=== PATIENT | female | born 1995 | race Caucasian/White ===

== ENCOUNTER 2021-05-31 20:20 | Outpatient (CLI) | payer SELFPAY ==
[2021-05-31 20:33] VITALS: BP 130/81; PULSE 84
[2021-05-31 20:43] VITALS: RESP 15
[2021-05-31 20:47] VITALS: BMI 29.9
[2021-05-31 22:03] VITALS: BP 124/79; PULSE 89
[2021-05-31 22:29] VITALS: BP 122/76; PULSE 85
== END 2021-05-31 23:00 | disposition home or self-care (01) ==
LOC: OPOB 20:27 → OBGYN 20:28
PROVIDERS: Family Provider Family Medicine; Visit Provider Family Medicine
DX: O26.899 Other specified pregnancy related conditions, unspecified trimester (principal); Z3A.00 Weeks of gestation of pregnancy not specified; R10.9 Unspecified abdominal pain
CPT/HCPCS: 59025; 99211

== ENCOUNTER 2021-06-02 02:27 | Inpatient (IN) | payer SELFPAY ==
[2021-06-02] VITALS (63 sets, daily range): BP systolic 100–135; BP diastolic 59–87; PULSE 87–173; RESP 16–18; TEMP 36.4–37.1; O2SAT 98–100; BMI 29.9
[2021-06-02] MEDS: lactated ringers 1,000 ML 999 ML IV (03:00)
[2021-06-02] MEDS: fentaNYL 50 mcg/mL INJ 2mL IVP (03:04)
[2021-06-02 03:06] LABS: Basophils % 0.2 %; Eosinophils # 0.1 10^3/uL (0.0-0.8); Eosinophils % 0.5 %; Hematocrit 28.8 % (37.0-47.0); Hemoglobin 8.8 g/dL (11.5-15.3); Lymphocytes % 10.9 %; Mean Corpuscular HGB Conc 30.6 g/dL (30.0-36.0); Mean Corpuscular Hemoglobin 25.2 pg (28.0-34.0); Mean Corpuscular Volume 82.5 fl (81-99); Mean Platelet Volume 11.9 fL (7.4-10.4); Monocytes # 1.1 10^3/uL (0.2-0.9); Monocytes % 5.8 %; Neutrophils # 15.18 10^3/uL (1.8-7.7); Neutrophils % 81.5 %; Nucleated Red Blood Cells % 0.2 %; Platelet Count 157 10^3/cmm (130-400); Red Blood Count 3.49 10^6/uL (4.1-5.3); Red Cell Distribution Width 16.9 % (12.1-15.1); White Blood Count 18.6 10^3/uL (4.0-10.0)
[2021-06-02] MEDS: ondansetron 2 mg/ML SDV 2 mL 4 MG IVP (03:16)
[2021-06-02 03:49] LABS: Nitrazine Paper, PH Positive
--- NOTE | 2021-06-02 04:07 | P.ANESASSM_ITS ---
Pre-Anesthetic Assessment Pre-Anesthetic Assessment: Height/Weight: Height 1.65 m Weight 81.647 kg Temp Pulse Resp BP 97.9 F 93 18 121/69 06/02/21 02:20 06/02/21 03:50 06/02/21 03:04 06/02/21 03:50 Preop Diagnosis: labor pain Proposed Procedure: epidural Familial anesthetic complications: none Was Beta Calvin taken within 24 hours: N/A Was Clonidine taken within 24 hours: N/A Social: Social History: No alcohol and No tobacco Exam: Pre-Anes Outpt Exam: alert, oriented x 3, clear to auscultation bilaterally and regular rate & rhythm Airway: Submandibular: WNL Cervical ROM: WNL MP: 2 Dentition: Full Pulmonary: Pulmonary: None reported CV/HEM: CV/HEM: None reported : : None reported Hepatic: Hepatic: None reported GI: GI: GERD Metabolic: Metabolic: None reported Musc/skel: Musc/skel: None reported Neuropsych: Neuropsych: GRAYSON Anesthetic Plan: ASA status: 2 Anesthesia: Regional (specify below) Risk of > 500 ml blood loss (7ml/kg in children): No Meds/Allergies Current Medications: Current Medications Generic Name Dose Route Start Last Admin Trade Name Freq PRN Reason Stop Dose Admin Fentanyl 25 - 100 mcg 06/02/21 02:19 06/02/21 03:04 Fentanyl 50 Mcg/ Ml Inj 2ml IVP 25 mcg Q1H PRN Administration SEVERE PAIN Lactated Ringer's 1,000 mls @ 999 m ls/hr 06/02/21 02:19 06/02/21 03:00 Lactated Ringers IV 999 mls/hr .Q1H1M PRN Administration See label comment s Ondansetron HCl 4 mg 06/02/21 02:19 06/02/21 03:16 Ondansetron 2 Mg /Ml Sdv 2 Ml IVP 4 mg Q4H PRN Administration NAUSEA AND VOMITI NG PFSH Anesthesia Female Reproductive History: : 3 Data Anesthesia CBC & Chem 7: 06/02/21 03:00 Other Labs: Laboratory Results - last 48 hr 06/02/21 03:00 WBC 18.6 H RBC 3.49 L Hgb 8.8 L Hct 28.8 L MCV 82.5 MCH 25.2 L MCHC 30.6 RDW 16.9 H Plt Count 157 MPV 11.9 H Neut % (Auto) 81.5 Lymph % (Auto) 10.9 [place] % (Auto) 5.8 Eos % (Auto) 0.5 Baso % (Auto) 0.2 Neut # (Auto) 15.18 H Lymph # (Auto) 2.0 [place] # (Auto) 1.1 H Eos # (Auto) 0.1 Baso # (Auto) 0.0 Nucleated RBC % (auto) 0.2 Nucleated RBCs # 0.0 Cardiac Studies: No Data to Display
[2021-06-02] MEDS: dextrose 5%-lactated ringers 1,000 ML 125 ML IV (04:13)
--- NOTE | 2021-06-02 04:42 | P.ANES_ITS ---
Anesthesia Procedures Procedure/Date: 06/02/21 epidural Procedure Narrative: epidural complete, bolus given, epidural pump initiated with SAP ARCHITECT education given, vitals taken during procedure using OBIX system and satisfactory throughout, patient admits to decrease pain, report of procedure to OB RN Epidural: Time Out Performed: Yes Consents Signed: Procedure Consent Consent: requested by attending/covering physician, from patient, risks and benefits reviewed and patient agrees to proceed Lumbar Level: L3-L4 Epidural position: sitting Epidural procedure: sterile prep of area, 1% lidocaine to numb the area (3 mL), 18 g needle, negative for paresthesia passed, neg for paresthesia, test dose given, 1.5% xylocaine 1:200k epi (5 mL), 0.2% Ropivacaine bolus ml (5 mL), placed PCEA, no systemic response, sterile dressing applied, L.U.D. no apparent complications and 0.2% Ropiavacaine @ mls/hr (13 mL/hr)
[2021-06-02] MEDS: oxytocin 30 UNIT/500 ML BAG 999 UNIT IV (07:25)
[2021-06-02] MEDS: ibuprofen 800 mg tablet PO ×3 (08:31→21:44)
[2021-06-02] MEDS: docusate sodium 100 mg Capsule PO (08:31)
[2021-06-02] MEDS: HYDROcodone-acetaminophen 5-325 mg Tablet PO (08:31)
[2021-06-02] MEDS: prenatal vitamin Capsule 1 CAP PO (08:31)
--- NOTE | 2021-06-02 08:58 | PM.OPHPUD ---
Labor & Delivery H&P Update Date of Procedure: June 02, 2021 Date H&P Performed: 05/28/21 H&P update information: I have reviewed H&P completed within last 30 days, I have examined patient prior to procedure and Changes to prior documentation as noted here Changes to previous documentation: Spontaneous rupture of membranes with meconium. Admission Diagnosis: Preop diagnosis: labor pain Planned procedure: Vaginal delivery Related Problem List Diagnoses (1) 39 weeks gestation of : (2) Spontaneous rupture of membranes: (3) Meconium in amniotic fluid:
--- NOTE | 2021-06-02 09:00 | PM.DELIVERY ---
Delivery Note: Date of delivery: June 02, 2021 Pre-delivery diagnoses: 1. 25-year-old 3 para 2-0-0-2 at 39 weeks estimated stational age Post-delivery diagnoses: Status post vacuum-assisted vaginal delivery Procedure: Vacuum-assisted vaginal delivery Op report anesthesia: Epidural Delivering Physician: Dougie Wooten Estimated blood loss (mL): 100 Pre-Delivery Course: The patient presented to the hospital where she was as well as meconium. She is having consistent contractions. She slowly progressed to complete without difficulty. An epidural was placed. Her was unremarkable. She did switch positions in her third trimester because of moving. Her labs are unremarkable. Her Covid test is negative. Her glucose screen was negative. Her GBS status was negative. Delivery: DELIVERY: The patient progressed to complete without difficulty. She delivered a male with a weight of 11 pounds 1 ounce with Apgars of 8, 9. As the patient began pushing, her baby began having deep decelerations with heart rate sometimes into the 70s and 80s. I elected to use a vacuum to assist with delivery of the baby. The vacuum was carefully placed on the baby in usual fashion. I assisted with the vacuum during 3 contractions. There were no pop offs. The baby was delivered from the MARVIN position and placed on the mother's abdomen. The cord was then clamped and cut. There was no nuchal cord. Thick meconium was noted. The baby's mouth and nose were suctioned with bulb suction. The baby was then handed to the nurses at the infant warmer who then delete suction to the baby as well.. The placenta and 3 vessel cord were delivered intact shortly thereafter. The perineum and vaginal vault were carefully examined. No lacerations were noted. Both the mother and the baby were in stable condition. Post-Delivery Status: Good A&P Assessment and plan (1) 39 weeks gestation of : Status: Acute (2) Spontaneous rupture of membranes: Status: Acute (3) Meconium in amniotic fluid: Status: Acute Coding Level of Care Code Acute Legal Administrative Secretary for Chg Fwd Diagnoses 39 weeks gestation of Z3A.39 Spontaneous rupture of membranes Meconium in amniotic fluid P96.83
--- NOTE | 2021-06-02 10:38 | PC.NURSE ---
note This mom reports baby is well. She has no concerns and no questions. Provided contact information.
[2021-06-02] MEDS: lanolin oint 7 gm 1 APPLIC TOPICAL (10:56)
[2021-06-02] MEDS: benzocaine-menthol 78 gm Canister 1 SPRAY TOPICAL (10:56)
[2021-06-02 19:48] LABS: Hematocrit 26.3 % (37.0-47.0); Hemoglobin 8.2 g/dL (11.5-15.3); Mean Corpuscular HGB Conc 31.2 g/dL (30.0-36.0); Mean Corpuscular Hemoglobin 25.5 pg (28.0-34.0); Mean Corpuscular Volume 81.7 fl (81-99); Mean Platelet Volume 11.9 fL (7.4-10.4); Platelet Count 145 10^3/cmm (130-400); Red Blood Count 3.22 10^6/uL (4.1-5.3); Red Cell Distribution Width 16.9 % (12.1-15.1); White Blood Count 22.1 10^3/uL (4.0-10.0)
[2021-06-03 01:37] VITALS: BP 124/72; PULSE 90
[2021-06-03 01:43] VITALS: RESP 15; TEMP 36.6
[2021-06-03 03:14] VITALS: RESP 16
[2021-06-03 03:16] VITALS: BP 111/63; PULSE 96
[2021-06-03] MEDS: HYDROcodone-acetaminophen 5-325 mg Tablet PO (04:27)
--- NOTE | 2021-06-03 07:28 | ANE.PACU2 ---
Inpatient post-anesthesia follow up: Airway intact: Yes Vital signs: Temperature 97.9 F Pulse Rate 96 Respiratory Rate 16 Blood Pressure 111/63 Pulse Oximetry 99 Oxygen Delivery Me thod Room Air Oxygen Flow Rate Fraction of Inspir ed Oxygen Hydration adequate: Yes Nausea and vomiting: No Pain level: 2 Mental status: Baseline
--- NOTE | 2021-06-03 08:13 | PM.OBGYDC ---
Discharge Providers FIRST BEATER Date of Admission: 06/02/21 02:27 Date of Discharge: 06/04/21 Attending Provider at Admission: Dougie Wooten MD Attending Provider at Discharge: Dougie Wooten MD Diagnoses at Discharge Discharge Diagnosis (1) 39 weeks gestation of : Status: Resolved (2) Spontaneous rupture of membranes: Status: Resolved (3) Meconium in amniotic fluid: Status: Resolved Reason for Visit Reason for Visit: poss SROM Hospital Course Hospital Course The patient presented to the hospital with spontaneous rupture of membranes. Thick meconium was noted. An epidural was placed. She progressed to complete and had an unremarkable delivery of an 11 pound 1 ounce baby. Her course was unremarkable. Her bleeding was within normal limits. Her pain was well controlled. She breast-fed well. Information Peripartum Data: Delivery Method: Vaginal Physical Exam Narrative: EXAM NARRATIVE: The patient is alert. She appears comfortable. Her heart has a regular rate and rhythm with no murmurs appreciated. Lungs are clear to auscultation bilaterally. Her fundus is firm and below the umbilicus. Urinary Catheter Management^: Alonso: Cath Placed During This Visit: yes, but has since been removed by the nurse Reason for Continuing Indwelling Catheter: Decision to DC Catheter Urinary Catheter Date of Insertion: 06/02/21 Urinary Catheter Time of Insertion: 05:20 Date Urinary Catheter Removed: 06/02/21 Time Urinary Catheter Discontinued: 07:12 Discharge Data Data Completed and Pending: Labs from last 24 hours 06/02/21 19:30 WBC 22.1 H RBC 3.22 L Hgb 8.2 L Hct 26.3 L MCV 81.7 MCH 25.5 L MCHC 31.2 RDW 16.9 H Plt Count 145 MPV 11.9 H Vitals: Last Vital Signs Temp 97.9 F 06/03/21 01:43 Pulse 96 06/03/21 03:16 Resp 16 06/03/21 03:14 BP 111/63 06/03/21 03:16 Pulse Ox 99 06/02/21 18:07 Discharge Plan Discharge Patient Disposition: Home Condition: Stable Prescriptions: New ibuprofen 800 mg Tablet 800 mg PO TID Qty: 45 RF: 0 Continued [id number] 1 mg Tablet 1 tab PO DAILY RF: 0 Discharge Orders: Discharge Order (Routine); Ordered 06/03/21 Ordered By: Dougie Wooten Referrals: Dougie Wooten MD [Family Provider] - 07/15/21 10:45 am (Your 6 week appointment is scheduled for 07/15/21 @10:45. ) Discharge Diet: Usual diet Discharge Activity: Limit activity as instructed Patient Instructions: Vitamins (By mouth), Depression (GEN), Pre-eclampsia and Eclampsia (DC), Bleeding (GEN), OB Discharge Report, OB Food/Drug Interaction Guide, Opioid Safety, OB Home Care, OB Vaginal Deliveries Discharge Attestations FIRST BEATER Time Spent in Discharge Care*: less than 30 min Specific Discharge Activities: Specific discharge activities: educating patient Coding Level of Care Code Acute Hvac Sheet Metal Installer for Chg Fwd Diagnoses 39 weeks gestation of Z3A.39 Spontaneous rupture of membranes Meconium in amniotic fluid P96.83
[2021-06-03] MEDS: prenatal vitamin Capsule 1 CAP PO (10:10)
[2021-06-03] MEDS: docusate sodium 100 mg Capsule PO (10:11)
[2021-06-03] MEDS: ibuprofen 800 mg tablet PO (10:11)
[2021-06-03 10:21] VITALS: BP 114/69; PULSE 88; RESP 16; TEMP 36.4; O2SAT 98
== END 2021-06-03 12:10 | disposition home or self-care (01) | DRG 807 ==
LOC: OPOB 02:28 → OBGYN 02:28
PROVIDERS: Admitting Provider Family Medicine; Family Provider Family Medicine; Visit Provider Family Medicine
DX: O77.0 Labor and delivery complicated by meconium in amniotic fluid (principal); Z37.0 Single live birth; O76 Abnormality in fetal heart rate and rhythm complicating labor and delivery; Z3A.39 39 weeks gestation of pregnancy
CPT/HCPCS: 12345; 36415; 51702; 59409; 83986; 85025; 85027; 96374; J2405; J2795; J3010

== ENCOUNTER 2022-01-13 16:12 | Emergency (ER) | payer SELFPAY ==
--- NOTE | 2022-01-13 16:15 | ECG_ITS ---
[facility] Test Date: 2022-01-13 Pat Name: Vinny Elliott Department: Room: Gender: Female Suit Maker: : 1995 Requested By: Dhara Hernandez Order Number: [id number] Daniels MD: Beatris Damon M.D. Measurements Intervals [place] Rate: 94 P: 73 RI: 139 QRS: 48 QRSD: 86 T: 69 QT: 343 QTc: 430 Interpretive Statements SINUS RHYTHM LOW QRS VOLTAGE IN PRECORDIAL LEADS [QRS DEFLECTION < 1.0 mV IN CHEST LEADS] No previous ECG available for comparison Electronically Signed On 01-13-2022 20:03:21 CDT by Beatris Damon M.D. [id number]
--- NOTE | 2022-01-13 16:15 | XRR_ITS ---
PROCEDURE INFORMATION: Exam: XR Chest Exam date and time: 01/13/2022 4:59 PM Age: 26 years old Clinical indication: Other: Syncope TECHNIQUE: Imaging protocol: XR of the chest. Views: 1 view. Total images: 1 COMPARISON: No relevant prior studies available. FINDINGS: Lungs: Unremarkable. No consolidation. Pleural spaces: Unremarkable. No pleural effusion. No pneumothorax. Heart/Mediastinum: Unremarkable. No cardiomegaly. Bones/joints: Unremarkable. XR/XR chest 1V portable [id number] IMPRESSION: No acute findings.
--- NOTE | 2022-01-13 16:15 | CTR_ITS ---
PROCEDURE INFORMATION: Exam: CT Head Without Contrast Exam date and time: 01/13/2022 5:06 PM Age: 26 years old Clinical indication: Pain; Alteration of consciousness and dizziness; Syncope and collapse; Headache; Additional info: Syncope, GRAYSON TECHNIQUE: Imaging protocol: Computed tomography of the head without contrast. Radiation optimization: All CT scans at this facility use at least one of these dose optimization techniques: automated exposure control; mA and/or kV adjustment per patient size (includes targeted exams where dose is matched to clinical indication); or iterative reconstruction. COMPARISON: No relevant prior studies available. RADIATION DOSE METRICS: Total DLP (mGy-cm): 808.62 FINDINGS: Brain: Normal. No hemorrhage or evidence of acute infarction. No mass effect. Cerebral ventricles: No ventriculomegaly. Paranasal sinuses: Visualized sinuses are unremarkable. No fluid levels. Mastoid air cells: Visualized mastoid air cells are well aerated. Bones/joints: Unremarkable. No acute fracture. Soft tissues: Unremarkable. CT/CT head wo con* [id number] IMPRESSION: No acute intracranial abnormality.
[2022-01-13 16:29] VITALS: PULSE 118; RESP 18; TEMP 37.6; O2SAT 96
--- NOTE | 2022-01-13 18:22 | USR_ITS ---
PROCEDURE INFORMATION: Exam: US Left Breast Limited; Cellulitis or Abscess Evaluation Exam date and time: 01/13/2022 7:15 PM Age: 26 years old Clinical indication: Mass, lump, or swelling; Left; Breast pain; Additional info: R/O abscess TECHNIQUE: Imaging protocol: Left breast ultrasound. Exam limited to the quadrant(s) of clinical concern. Exam focused on the evaluation of cellulitis or abscess. Exam is an emergent request and a non-BIRADS study. COMPARISON: No relevant prior studies available. FINDINGS: Breast: Nonspecific heterogeneity of the breast soft tissues. There may be scattered areas of generalized soft tissue edema. No definite organized fluid collection seen. US/US breast LT complete [id number] IMPRESSION: No evidence of abscess. Generalized soft tissue edema.
--- NOTE | 2022-01-13 18:30 | ED_ITS ---
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 States she started having some body shakes and passed out. States she had passed out again after that has been having nausea. She states that since then she has had a mild headache and feeling shaky still. She states that she has had multiple episodes like this in the past said multiple syncopal episodes but typically does not pass out twice states her headache is mild nature rates it a 4 out of 10 denies any chest pain or shortness of breath. She states that also not related to this she is currently breast-feeding for 7 months and has had some pain fullness over her left breast and concerned of a blocked duct or mastitis Associated symptoms: Reports headache(s); Deny abdominal pain, chest pain, fever(s) or nausea Review of Systems Const: Denies: fever(s), chills, body aches or change in appetite Eyes: Denies: blurry vision or eye discomfort ENMT: Denies: throat pain or dental pain Card: Reports: syncope; Denies: chest pain Resp: Denies: dyspnea GI: Denies: abdominal pain, nausea, vomiting or diarrhea : Denies: dysuria Musc: Denies: neck pain or back pain Skin/Breast: Denies: rash Neuro: Reports: headache(s) Psych: Denies: depression Pop/Lymph: Denies: easy bruising All/Imm: Denies: urticaria PFS ED PFSH: Medical History (Updated 01/13/22 @ 21:07 by Lucio Curtis MD) No pertinent past medical history Physical Exam Const: COMMON NORMALS: no acute distress, patient oriented x3 and healthy appearing HENMT: COMMON NORMALS: normocephalic and atraumatic HEAD & SCALP: normocephalic and atraumatic Eye: COMMON NORMALS: Equal, round and reactive pupils present and EOMs intact bilaterally PUPIL: Yes Equal, round and reactive pupils present Neck/C-Spine: COMMON NORMALS: full ROM and supple Chest: COMMONS NORMALS: normal inspection of the chest OTHER: Some tenderness to the left upper portion of the left breast no redness or warmth to touch at this time Resp: COMMON NORMALS: normal respiratory effort, No retractions, No use of accessory muscles and clear to auscultation bilaterally AUSCULTATION: clear to auscultation bilaterally Cardio: COMMON NORMALS: regular rate, regular rhythm and No murmurs present (Cardio) RATE: regular rate RHYTHM: regular rhythm GI: COMMON NORMALS: Normal to inspection, nondistended, normoactive bowel s ounds present, Soft to palpation, non-tender and no masses PALPATION: Yes Soft to palpation Extremity: COMMON NORMALS: normal to inspection and full ROM Neuro: COMMON NORMALS: patient oriented x3, moves all extremities and no focal motor deficits Psych: COMMON NORMALS: mental status grossly normal, Normal thought process present and cooperative THOUGHT PROCESS: Normal thought process present Skin: COMMON NORMALS: no rashes or lesions noted and no wounds GENERAL SKIN EXAM: no rashes or lesions noted Course Vital Signs: Vital signs: Vital Signs Temperature 99.7 F H 01/13/22 16:29 Pulse Rate 88 01/13/22 21:36 Respiratory Rate 16 01/13/22 21:36 Blood Pressure 96/74 01/13/22 21:36 Pulse Oximetry 100 01/13/22 21:36 MDM - Syncope Medical Decision Making Patient presents here with a syncopal event she is been well-appearing here is a mild headache she has no signs of a subarachnoid hemorrhage or an aneurysm this is not the worst headache of her life she does not have any nuchal rigidity and it was not sudden onset it was after she had passed out. Her headache here is r esolved she felt improved after IV fluids well she also had some breast tenderness erythema and likely mastitis no signs of an abscess we will place her on antibiotics she is to follow-up with her PCP and return if worsening she understands agrees to plans. Lab Data : 01/13/22 18:00 01/13/22 18:[address] 01/13/22 16:15 IMPRESSION: No acute intracranial abnormality. Breast Ultrasound 01/13/22 18:22 IMPRESSION: No evidence of abscess. Generalized soft tissue edema. Laboratory Results WBC 10.2 10^3/uL (4.0-10.0) H 01/13/22 18:00 RBC 4.19 10^6/uL (4.1-5.3) 01/13/22 18:00 Hgb 12.4 g/dL (11.5-15.3) 01/13/22 18:00 Hct 38.7 % (37.0-47.0) 01/13/22 18:00 MCV 92.4 fl (81-99) 01/13/22 18:00 MCH 29.6 pg (28.0-34.0) 01/13/22 18:00 MCHC 32.0 g/dL (30.0-36.0) 01/13/22 18:00 RDW 12.8 % (12.1-15.1) 01/13/22 18:00 Plt Count 141 10^3/cmm (130-400) 01/13/22 18:00 MPV 12.1 fL (7.4-10.4) H 01/13/22 18:00 Neut % (Auto) 86.3 % 01/13/22 18:00 Lymph % (Auto) 5.1 % 01/13/22 18:00 [place] % (Auto) 8.1 % 01/13/22 18:00 Eos % (Auto) 0.0 % 01/13/22 18:00 Baso % (Auto) 0.2 % 01/13/22 18:00 Neut # (Auto) 8.76 10^3/uL (1.8-7.7) H 01/13/22 18:00 Lymph # (Auto) 0.5 10^3/uL (0.8-4.8) L 01/13/22 18:00 [place] # (Auto) 0.8 10^3/uL (0.2-0.9) 01/13/22 18:00 Eos # (Auto) 0.0 10^3/uL (0.0-0.8) 01/13/22 18:00 Baso # (Auto) 0.0 10^3/uL (0.0-0.1) 01/13/22 18:00 Nucleated RBC % (auto) 0 % 01/13/22 18:00 Nucleated RBCs # 0.0 /100WBC 01/13/22 18:00 D-Dimer 0.46 ug/mIFEU (0-0.59) 01/13/22 19:47 Sodium 138 mmol/L (136-145) 01/13/22 18:00 Potassium 3.9 mmol/L (3.5-5.1) 01/13/22 18:00 Chloride 102 mmol/L (98-107) 01/13/22 18:00 Carbon Dioxide 25 mmol/L (22-29) 01/13/22 18:00 Anion Gap 14.9 (5-19) 01/13/22 18:00 BUN 17 mg/dL (6-20) 01/13/22 18:00 Creatinine 0.6 mg/dL (0.5-0.9) 01/13/22 18:00 GFR Calculation 119.9 mL/min (90-130) 01/13/22 18:00 Glucose 102 mg/dL (65-115) 01/13/22 18:00 Calculated Osmolality 288 mOsm/kg (285-295) 01/13/22 18:00 Calcium 9.6 mg/dL (8.5-10.5) 01/13/22 18:00 Total Bilirubin 0.4 mg/dL (0.15-1.2) 01/13/22 18:00 AST 23 U/L (0-32) 01/13/22 18:00 ALT 15 U/L (0-33) 01/13/22 18:00 Alkaline Phosphatase 84 IU/L (35-105) 01/13/22 18:00 Total Protein 7.3 g/dL (6.6-8.7) 01/13/22 18:00 Albumin 4.2 g/dL (3.5-5.2) 01/13/22 18:00 Globulin 3.1 g/dL (1.3-4.6) 01/13/22 18:00 Urine Color Colorless (Yellow) 01/13/22 19:35 Urine Appearance Clear (CLEAR) 01/13/22 19:35 Urine pH 5 (5-7) 01/13/22 19:35 Ur Specific [place] 1.005 (1.005-1.030) 01/13/22 19:35 Urine Protein Neg (Negative) 01/13/22 19:35 Urine Glucose (UA) Norm (Normal) 01/13/22 19:35 Urine Ketones Negative (Negative) 01/13/22 19:35 Urine Blood Neg (Negative) 01/13/22 19:35 Urine Nitrate Negative (Negative) 01/13/22 19:35 Urine Bilirubin Neg (Negative) 01/13/22 19:35 Urine Urobilinogen Norm mg/dL (Negative) 01/13/22 19:35 Ur Leukocyte Esterase Negative (Negative) 01/13/22 19:35 Urine Opiates Screen Negative ng/mL (Negative) 01/13/22 19:35 Ur Barbiturates Screen Negative ng/mL (Negative) 01/13/22 19:35 Ur Phencyclidine Scrn Negative ng/mL (Negative) 01/13/22 19:35 Ur Amphetamines Screen Negative ng/mL (Negative) 01/13/22 19:35 U Benzodiazepines Scrn Negative ng/mL (Negative) 01/13/22 19:35 Urine Cocaine Screen Negative ng/mL (Negative) 01/13/22 19:35 U Marijuana (THC) Screen Negative ng/mL (Negative) 01/13/22 19:35 EKG Data EKG 1: I personally reviewed and interpreted this EKG as follows: EKG interpretation date: 01/13/22 EKG interpretation time: 19:29 Interpretation: nsr hr [address] or t wave abnormalities qrs 86 qtc 395 EKG 2: I personally reviewed and interpreted this EKG as follows: EKG interpretation date: 01/13/22 EKG interpretation time: 19:29 Interpretation: nsr hr [address] or t wave abnormalities qrs 86 qtc 395 Discharge Plan Discharge Patient Disposition: Home Clinical Impression: Syncope, Mastitis Prescriptions: New dicloxacillin 500 mg capsule 500 mg PO QID Qty: 40 0RF No Action ibuprofen 800 mg Tablet 800 mg PO TID Qty: 45 0RF [id number] 1 mg Tablet 1 tab PO DAILY 0RF Discharge Orders: Discharge ED (Routine); Ordered 01/13/22 Ordered By: Lucio Curtis Referrals: Dougie Wooten MD [Family Provider] - 1-3 days Discharge Diet: Advance as tolerated Discharge Activity: Resume usual activity Patient Instructions: Mastitis (ED), Syncope (ED) Coding Level of Care Code ED [place] Management Specialist for Chg Fwd Exam Comprehensive
[2022-01-13] MEDS: acetaminophen 500 mg Tablet 1000 MG PO (18:32)
[2022-01-13 18:33] VITALS: BP 121/78; O2SAT 97
[2022-01-13] MEDS: sodium chloride 0.9% 1,000 ML 999 ML IV (18:33)
[2022-01-13 18:41] LABS: Basophils % 0.2 %; Hematocrit 38.7 % (37.0-47.0); Hemoglobin 12.4 g/dL (11.5-15.3); Lymphocytes # 0.5 10^3/uL (0.8-4.8); Lymphocytes % 5.1 %; Mean Corpuscular Hemoglobin 29.6 pg (28.0-34.0); Mean Corpuscular Volume 92.4 fl (81-99); Mean Platelet Volume 12.1 fL (7.4-10.4); Monocytes # 0.8 10^3/uL (0.2-0.9); Monocytes % 8.1 %; Neutrophils # 8.76 10^3/uL (1.8-7.7); Neutrophils % 86.3 %; Nucleated Red Blood Cells % 0 %; Platelet Count 141 10^3/cmm (130-400); Red Blood Count 4.19 10^6/uL (4.1-5.3); Red Cell Distribution Width 12.8 % (12.1-15.1); White Blood Count 10.2 10^3/uL (4.0-10.0)
[2022-01-13 19:00] VITALS: BP 106/63; PULSE 91; RESP 16; O2SAT 99
[2022-01-13 19:03] LABS: Alanine Aminotransferase 15 U/L (0-33); Albumin Level 4.2 g/dL (3.5-5.2); Alkaline Phosphatase 84 IU/L (35-105); Blood Urea Nitrogen 17 mg/dL (6-20); Calcium 9.6 mg/dL (8.5-10.5); Carbon Dioxide 25 mmol/L (22-29); Chloride 102 mmol/L (98-107); Globulin 3.1 g/dL (1.3-4.6); Glomerular Filtration Rate 119.9 mL/min (90-130); Glucose 102 mg/dL (65-115); Osmolality Calculated 288 mOsm/kg (285-295); Sodium 138 mmol/L (136-145); Total Bilirubin 0.4 mg/dL (0.15-1.2); Total Protein 7.3 g/dL (6.6-8.7)
[2022-01-13 19:30] VITALS: BP 102/61; PULSE 89; RESP 16; O2SAT 100
[2022-01-13 19:40] LABS: Anion Gap 14.9 (5-19); Aspartate Amino Transferase 23 U/L (0-32)
[2022-01-13 19:41] LABS: Potassium 3.9 mmol/L (3.5-5.1)
[2022-01-13 19:47] LABS: Add Urine Microscopic? NO; Charge for UA Resulting for Rev
[2022-01-13 20:04] LABS: Amphetamines Screen Urine Negative (Negative); Barbiturates Screen Urine Negative (Negative); Benzodiazepines Screen Urine Negative (Negative); Cocaine Screen Urine Negative (Negative); Opiate Screen Urine Negative (Negative); PCP Screen Urine Negative (Negative); THC Screen Urine Negative (Negative)
[2022-01-13 20:07] LABS: Specific Gravity, Urine 1.005 (1.005-1.030); Urine Appearance Clear (CLEAR); Urine Color Colorless (Yellow); pH Urine 5 (5-7)
[2022-01-13 20:08] LABS: Bilirubin Urine Neg (Negative); Blood Urine Neg (Negative); Glucose Urine UA Norm (Normal); Ketones Urine Negative (Negative); Leukocyte Esterase Urine Negative (Negative); Nitrate Urine Negative (Negative); Protein Urine Neg (Negative); Urobilinogen Urine Norm (Negative)
[2022-01-13 20:23] LABS: D Dimer 0.46 ug/mIFEU (0-0.59)
[2022-01-13] MEDS: metoclopramide 5 mg/mL SDV 2 mL IVP (21:18)
[2022-01-13] MEDS: diphenhydrAMINE 50 mg/mL SDV 1mL 25 MG IVP (21:19)
[2022-01-13] MEDS: ketorolac 30 mg/mL INJ 15 MG IVP (21:20)
[2022-01-13 21:36] VITALS: BP 96/74; PULSE 88; RESP 16; O2SAT 100
== END 2022-01-13 21:37 | disposition home or self-care (01) ==
PROVIDERS: Physician Assistant; Emergency Provider Emergency Medicine; Family Provider Family Medicine
DX: R55 Syncope and collapse (principal); N61.0 Mastitis without abscess
CPT/HCPCS: 36415; 70450; 71045; 76641; 80053; 80306; 81003; 85025; 85378; 93005; 96361; 96374; 96375; 99285; J1200; J1885; J2765; J7030